=== PATIENT | male | born 1945 | race Asian ===

== ENCOUNTER 2022-03-29 07:28 | Day surgery (SDC) | payer MEDICARE, MEDICAID ==
[2022-03-23 13:38] LABS: BASOPHILS % (AUTO) 1.2 % (0-1); EOSINOPHILS % (AUTO) 1.1 % (0-6); LYMPHOCYTES # (AUTO) 1.2 X10'3 (1.1-4.8); LYMPHOCYTES % (AUTO) 27.9 % (21-51); MEAN CORPUSCULAR HEMOGLOBIN 29.6 PG (27.0-31.0); MEAN CORPUSCULAR VOLUME 89.6 FL (78-98); MEAN PLATELET VOLUME 7.1 FL (7.4-10.4); MONOCYTES # (AUTO) 0.4 X10'3 (0-0.9); MONOCYTES % (AUTO) 8.7 % (2-12); NEUTROPHILS # (AUTO) 2.5 X10'3 (1.8-7.7); NEUTROPHILS % (AUTO) 61.1 % (42-75); PRE OP HEMATOCRIT 40.8 % (42.0-52.0); PRE OP HEMOGLOBIN 13.5 g/dL (14.0-17.9); PRE OP PLATELET COUNT 247 X10'3 (140-440); RED BLOOD COUNT 4.55 X10'6 (4.70-6.10); RED CELL DISTRIBUTION WIDTH 14.4 % (11.5-14.5)
[2022-03-23 13:49] LABS: ALBUMIN 3.7 G/DL (3.4-5.0); ALBUMIN/GLOBULIN RATIO 1.1 (1.1-1.5); ALKALINE PHOSPHATASE 99 IU/L (46-116); BLOOD UREA NITROGEN 13 MG/DL (7-18); BUN/CREATININE RATIO 16.7 (5.4-32.0); CALCIUM 8.5 MG/DL (8.5-10.1); CHLORIDE 106 MMOL/L (99-107); CREATININE 0.78 MG/DL (0.60-1.10); PRE OP ALT 25 U/L (30-65); PRE OP ANION GAP 5 (8-16); PRE OP AST 19 U/L (10-37); PRE OP BILIRUB, TOTAL 0.6 MG/DL (0.0-1.0); PRE OP GLUCOSE 88 MG/DL (70-104); PRE OP SODIUM 140 MMOL/L (135-145); TOTAL CARBON DIOXIDE 29.5 MMOL/L (24-32); TOTAL PROTEIN 7.2 G/DL (6.4-8.2); eGFR > 90 ML/MIN
[~2022-03-29] VITALS: Ht 167.6 cm; Wt 54.4 kg
[2022-03-29] VITALS (21 sets, daily range): BP systolic 116–166; BP diastolic 66–109
[~2022-03-29 07:28] MED LIST: AMLO5TAB16 PO; FINA5TAB11 PO; FLO0.4C PO; KEN0.1O TOP; MELO-102 PO; OMEP40CA21 PO; OXYB5TAB16 PO; PROM118S5 PO; UMEC1DIS PO; ZOLP10TA PO; ceFAZolin inj. 2,000 MG in dextrose 5%-water 100 ML IV ONE; famotidine 20mg tablet PO ONE; ringers solution, lacted 1,000 ML IV SCH
[2022-03-29] MEDS ORDERED: ondansetron/PF 4mg/2ml inj IV PRN (09:25)
[2022-03-29] MEDS ORDERED: morphine 2 MG/ML inj. syringe IV PRN (09:25)
[2022-03-29] MEDS ORDERED: ringers solution, lacted 1,000 ML IV SCH (09:25)
[2022-03-29] MEDS ORDERED: proCHLORperazine 10 MG/2 ml inj IV PRN (09:25)
[2022-03-29] MEDS ORDERED: meperidine/PF 25mg/ml syringe IV PRN ×3 (09:25)
[2022-03-29] MEDS ORDERED: morphine 4 MG/ML inj SYRINge IV PRN (09:25)
[2022-03-29] MEDS ORDERED: BUPIVAcaine/PF 2.5 mg/ml (0.25%) 30ml vial ONE (10:10)
[2022-03-29] MEDS ORDERED: rocuronium 10mg/ml inj IV ONE (10:22)
[2022-03-29] MEDS ORDERED: fentaNYL/PF 50MCG/1 ML 2ML syringe ONE (10:22)
[2022-03-29] MEDS ORDERED: midazolam 1 mg/ML 2ml injection ONE (10:22)
[2022-03-29] MEDS ORDERED: propofol inj 20 ML IV ONE (10:22)
[2022-03-29] MEDS ORDERED: ondansetron/PF 4mg/2ml inj ONE (11:27)
[2022-03-29] MEDS ORDERED: dexamethasone sod phosphate 4mg/ml inj. ONE (11:31)
[2022-03-29] MEDS ORDERED: neostigmine methylsulfate 1 MG/ML 10ml vial ONE (11:31)
[2022-03-29] MEDS ORDERED: glycopyrrolate 0.2mg/ml inj ONE (11:32)
--- NOTE | 2022-03-29 11:52 | NUR ---
Received from OR via [facility], accompanied by Anesthesiologist LISA and report given by Anesthesiolgist. PT IS GROGGY AND NON-YAKUT SPEAKING, DOES ROUSE TO VERBAL STIMULI AND TOUCH. PT PLACED ON BEDSIDE MONITOR, VSS. PT IN SR WITH RATE IN 70'S. PT RECEIVING 8L O2 TO NC AND TOLERATING WELL, WILL TITRATE DOWN PT TOLERATES. PT HAS 3 LAP SITES WITH DERMABOND, THERE ARE NO BANDAGES AT THIS TIME AND THERE IS MINIMAL OOZING FROM SITES. PT HAS 20G PIV TO LEFT FA WITH LR INFUSING. PT IS RESTING COMFORTABLY WITH NO S/S OF DISTRESS NOTED AT THIS TIME. WILL CONTINUE TO ASSESS
--- NOTE | 2022-03-29 15:13 | NUR ---
PT TAKEN OFF OF MONITOR AND IS WALKING AROUND TRYING TO VOID. BLADDER SCAN PERFORMED AND SHOWED 588ML IN BLADDER. PT ATTEMPTED TO VOID AND EMPTIED 75ML, POST VOID RESIDUAL SCAN WAS 519ML/ PT IS WALKING IN ATTEMPTS TO STIMULATE FURTHER VOIDS. WILL CONTINUE TO MONITOR.
--- NOTE | 2022-03-29 16:48 | NUR ---
PT HAS VOIDED 250ML. POST RESIDUAL BLADDER SCAN IS 288ML. PT DOES NOT WANT A CATHETER AND PT WILL ATTEMPT TO VOID AGAIN. WILL CONTINUE TO MONITOR.
--- NOTE | 2022-03-29 17:55 | NUR ---
PT REMAINED OFF MONITOR HE WAS WALKING OFF AND ON AROUND UNIT BACK AND FORTH FROM ROOM TO BATHROOM. PT IS VOIDING, CALL PLACED TO DR CONNER D/T PT HAVING RESIDUAL VOLUME OF 266ML IN BLADDER. DR CONNER GAVE THE OKAY TO DISCHARGE PT WITHOUT BLOOD D/T THE FACT HE HAD BEEN VOIDING.
--- NOTE | 2022-03-29 18:15 | NUR ---
ALL DISCHARGE CRITERIA HAS BEEN MET. VSS, PAIN AT A TOLERABLE LEVEL, VOIDING AND ABLE TO SAFELY AMBULATE AND TRANSFER SELF. IV TAKEN OUT WITHOUT ANY COMPLICATIONS. ALL DISCHARGE INSTRUCTIONS COVERED WITH PATIENT AND ALL QUESTIONS ANSWERED. PATIENT TAKEN OUT VIA WHEELCHAIR TO PERSONAL VEHICLE WHERE SON IN-LAW DROVE PATIENT HOME.
== END 2022-03-29 18:09 | disposition home or self-care (01) ==
LOC: PAS 07:28
PROVIDERS: ATTEND Surgery
DX: K40.90 Unilateral inguinal hernia, without obstruction or gangrene, not specified as recurrent (principal); Z79.899 Other long term (current) drug therapy; Z98.890 Other specified postprocedural states
CPT/HCPCS: 36415; 49650; 80053; 85025; 87811; 93005; C1781; J0690; J1100; J2175; J2250; J2405; J2704; J2710; J3010; J3490; J7030; J7060; J7120; Z7506; Z7508; Z7512; A4215; A4618; A6449